=== PATIENT | male | born 1955 | race Two or more races ===

== ENCOUNTER 2025-01-10 23:54 | Inpatient (IN) | payer MEDICARE, OTHER ==
[~2025-01-10] VITALS: Ht 165.1 cm; Wt 76.3 kg
[2025-01-11] VITALS (29 sets, daily range): BP systolic 124–167; BP diastolic 58–101; TEMP 97.6–98.2; O2SAT 90–100
[2025-01-11] MEDS: IPRATROPIUM NEB FS 0.5 MG/2.5 ML AMPUL.NEB NEB ONE (00:29)
[2025-01-11] MEDS: ALBUTEROL FS 2.5 MG/3 ML VIAL.NEB NEB ONE (00:29)
[2025-01-11 00:31] LABS: PLATELET COUNT (AUTO) 608 K/uL (150-450); RED BLOOD CELL COUNT(AUTO) 4.47 MIL/uL (4.5-6.0); RED CELL DISTRIBUTION WIDTH 15.1 % (11.5-15.0)
[2025-01-11 00:33] LABS: WHITE BLOOD COUNT (AUTO) 32.8 K/uL (4.3-11.0)
[2025-01-11 00:49] LABS: ASPARTATE AMINOTRANSFERASE 71 U/L (15-37); CALCIUM, SERUM 8.8 mg/dL (8.5-10.1); CREATININE 1.2 mg/dL (0.6-1.3); NT-PRO BNP 2722 pg/mL (0-125); SODIUM SERUM 130 mmol/L (136-145); TOTAL PROTEIN, SERUM 6.6 g/dL (6.4-8.2); UREA NITROGEN, BLOOD 18 mg/dL (7-18)
[2025-01-11] MEDS ORDERED: ALBUTEROL FS 2.5 MG/3 ML VIAL.NEB ONE (00:52)
[2025-01-11] MEDS ORDERED: IPRATROPIUM NEB FS 0.5 MG/2.5 ML AMPUL.NEB ONE (00:52)
[2025-01-11 00:56] LABS: ALCOHOL, BLOOD < 3 mg/dL (0-10)
[2025-01-11 00:59] LABS: LYMPHOCYTES % (MANUAL) 6 % (16-48); MONOCYTES % (MANUAL) 9 % (0-11.0); NEUTROPHILS % (MANUAL) 85 (42-76); PLATELET ESTIMATE ADEQUATE
[2025-01-11] MEDS ORDERED: CEFTRIAXONE 1GM BAG (ER ONLY) 50 ML IV ONE (01:01)
[2025-01-11] MEDS ORDERED: AZITHROMYCIN 500 MG VIAL ONE (01:02)
[2025-01-11] MEDS: CEFTRIAXONE 1 G in IV D5W 50 ML IV ONE (01:10)
[2025-01-11] MEDS ORDERED: ENOXAPARIN SODIUM 80 MG/0.8 ML DISP.SYRIN SQ ONE (01:12)
[2025-01-11] MEDS: AZITHROMYCIN 500 MG in IV D5W 250 ML IV ONE (01:16)
[2025-01-11] MEDS: ENOXAPARIN SODIUM 80 MG/0.8 ML DISP.SYRIN SQ ONE (01:17)
[2025-01-11] MEDS ORDERED: MAGNESIUM HYDROXIDE 30 ML UDC PO PRN (01:30)
[2025-01-11] MEDS ORDERED: MAG HYDROX/AL HYDROX/SIMETH 30 ML UDC PO PRN (01:30)
[2025-01-11] MEDS ORDERED: ALBUTEROL FS 2.5 MG/0.5 ML VIAL.NEB NEB PRN ×2 (01:30→10:00)
[2025-01-11 01:31] LABS: LACTIC ACID 6.2 mmol/L (0.4-2.0)
[2025-01-11] MEDS: ONDANSETRON HCL/PF 4 MG/2 ML VIAL IVP PRN (01:47)
[2025-01-11] MEDS ORDERED: INSULIN REGULAR, HUMAN 100 UNIT/ML 3 ML VIAL SQ PRN ×2 (02:00→06:00)
[2025-01-11] MEDS ORDERED: DEXTROSE 50%-WATER 50 ML DISP.SYRIN IV PRN ×3 (02:00→06:30)
[2025-01-11] MEDS ORDERED: METF-442 PO (02:51)
[2025-01-11] MEDS ORDERED: DULO20CA PO (02:51)
[2025-01-11] MEDS ORDERED: ATOR40TA PO (02:51)
[2025-01-11 04:55] LABS: PLATELET COUNT (AUTO) 541 K/uL (150-450); RED BLOOD CELL COUNT(AUTO) 4.08 MIL/uL (4.5-6.0); RED CELL DISTRIBUTION WIDTH 15.2 % (11.5-15.0); WHITE BLOOD COUNT (AUTO) 25.4 K/uL (4.3-11.0)
[2025-01-11 05:03] LABS: CALCIUM, SERUM 8.8 mg/dL (8.5-10.1); CREATININE 1.1 mg/dL (0.6-1.3); PHOSPHORUS 3.9 mg/dL (2.5-4.9); SODIUM SERUM 135.0 mmol/L (136-145); UREA NITROGEN, BLOOD 20.0 mg/dL (7-18)
[2025-01-11 05:25] LABS: LACTIC ACID REFLEX 4.7 mmol/L (0.4-1.9)
[2025-01-11] MEDS ORDERED: *INSULIN REGULAR(HUMULIN R)HUM 100 UNIT/ML VIAL SQ PRN (06:00)
[2025-01-11] MEDS ORDERED: BLOOD SUGAR DIAGNOSTIC 1 EACH STRIP IN SCH (07:30)
[2025-01-11] MEDS ORDERED: BLOOD SUGAR DIAGNOSTIC 1 EACH STRIP VI SCH (07:30)
[2025-01-11] MEDS: BLOOD SUGAR DIAGNOSTIC 1 EACH STRIP IN SCH (08:13)
[2025-01-11] MEDS: ENOXAPARIN SODIUM 80 MG/0.8 ML DISP.SYRIN SQ SCH (08:18)
[2025-01-11] MEDS: PANTOPRAZOLE 40 MG VIAL IV SCH (08:46)
[2025-01-11] MEDS: INSULIN REGULAR, HUMAN 100 UNIT/ML 3 ML VIAL SQ PRN (08:48)
[2025-01-11 08:50] LABS: ABG BASE EXCESS -6.5 mmol/L (-2.0-3.0); ABG OXYGEN SATURATION 87.7 % (94.0-98.0); ABG PCO2 25.8 mmHg (35.0-48.0); ABG PH 7.422 (7.350-7.450); ABG PO2 56.0 mmHg (83.0-108.0); ABG TOTAL HEMOGLOBIN 12.2 G/dL (13.5-17.5); FLOW, BLOOD GAS 6.00 L/min (0.00-30.00); FRACTIONATED INSPIRED OXYGEN 45.0 %; SITE, ABG RIGHT RADIAL
[2025-01-11] MEDS: FUROSEMIDE 40 MG/4 ML VIAL IV SCH ×2 (10:39→20:41)
[2025-01-11] MEDS: ACETAMINOPHEN 325 MG TABLET PO PRN (14:41)
[2025-01-11] MEDS: ASPIRIN EC 325 MG TABLET.DR PO SCH (20:41)
[2025-01-11] MEDS: CEFTRIAXONE 1 G in IV D5W 50 ML IV SCH (21:00)
[2025-01-11] MEDS: AZITHROMYCIN 500 MG in IV D5W 250 ML IV SCH (21:45)
[2025-01-11] MEDS: NITROGLYCERIN 0.4 MG/TAB BOTTLE SL PRN (22:47)
[2025-01-11] MEDS: ATORVASTATIN 40 MG TABLET PO SCH (22:48)
[2025-01-12] VITALS (84 sets, daily range): BP systolic 80–197; BP diastolic 51–117; TEMP 97.8–99.8; O2SAT 93–100
[2025-01-12 01:42] LABS: ABG BASE EXCESS -3.9 mmol/L (-2.0-3.0); ABG OXYGEN SATURATION 99.4 % (94.0-98.0); ABG PCO2 26.9 mmHg (35.0-48.0); ABG PH 7.460 (7.350-7.450); ABG PO2 247.3 mmHg (83.0-108.0); ABG TOTAL HEMOGLOBIN 11.4 G/dL (13.5-17.5); FRACTIONATED INSPIRED OXYGEN 100.0 %; SET RATE, BG 20.0; SITE, ABG RIGHT RADIAL
[2025-01-12] MEDS ORDERED: NTG 50 MG/D5W250 ML BOTTL 250 ML IV ONE (01:58)
[2025-01-12] MEDS: NTG 50 MG/D5W250 ML BOTTL 250 ML IV PRN (02:00)
[2025-01-12 04:36] LABS: LDL 93 mg/dL (0-99)
[2025-01-12] MEDS: IPRATROPIUM NEB FS 0.5 MG/2.5 ML AMPUL.NEB NEB PRN (07:05)
[2025-01-12 08:56] LABS: PLATELET COUNT (AUTO) 584 K/uL (150-450); RED BLOOD CELL COUNT(AUTO) 3.78 MIL/uL (4.5-6.0); RED CELL DISTRIBUTION WIDTH 15.2 % (11.5-15.0)
[2025-01-12 09:00] LABS: CALCIUM, SERUM 8.8 mg/dL (8.5-10.1); CREATININE 1.2 mg/dL (0.6-1.3); SODIUM SERUM 131.0 mmol/L (136-145); UREA NITROGEN, BLOOD 37.0 mg/dL (7-18)
[2025-01-12 09:15] LABS: WHITE BLOOD COUNT (AUTO) 33.1 K/uL (4.3-11.0)
[2025-01-12 09:35] LABS: LYMPHOCYTES % (MANUAL) 2 % (16-48); MONOCYTES % (MANUAL) 5 % (0-11.0); NEUTROPHILS % (MANUAL) 93 (42-76); PLATELET ESTIMATE INCREASED
[2025-01-12] MEDS: INSULIN REGULAR, HUMAN 100 UNIT/ML 3 ML VIAL SQ PRN (13:32)
[2025-01-12] MEDS: METOPROLOL TARTRATE 25 MG TABLET PO SCH (15:38)
[2025-01-12 15:40] LABS: APPEARANCE,URINE CLEAR (CLEAR); BLOOD, URINE 2+ Ery/uL (NEGATIVE); LEUKOCYTE ESTERASE ,URINE NEGATIVE (NEGATIVE); NITRITE, URINE NEGATIVE (NEGATIVE); UGLUCOSE 3+ mg/dL (NEGATIVE)
[2025-01-12] MEDS: AMIODARONE 150 MG in IV D5W 100 ML IV ONE (15:46)
[2025-01-12 15:57] LABS: AMPHETAMINE, URINE NEGATIVE (NEGATIVE); BARBITURATE, URINE NEGATIVE (NEGATIVE); BENZODIAZEPINE, URINE NEGATIVE (NEGATIVE); COCCAINE, URINE NEGATIVE (NEGATIVE); OPIATE, URINE NEGATIVE (NEGATIVE)
[2025-01-12 15:58] LABS: CANNABINOID, URINE POSITIVE (NEGATIVE)
[2025-01-12 15:59] LABS: ADD URINE CULTURE NO; SQUAMOUS EPITHELIAL CELL,UR None Seen /HPF (None Seen)
[2025-01-12] MEDS: AMIODARONE 450 MG in IV D5W 241 ML IV PRN (16:03)
[2025-01-12 16:24] LABS: CREATININE, URINE 37.4 MG/DL (30.0-125.0); URINE SODIUM, RANDOM 21.0 mmol/l (40-220); URINE TOTAL PROTEIN 14.6 mg/dL (0-11.9)
[2025-01-12 19:24] LABS: EOSINOPHIL,URINE None Seen
[2025-01-12] MEDS: *INSULIN REGULAR(HUMULIN R)HUM 100 UNIT/ML VIAL SQ PRN (21:26)
[2025-01-13] VITALS (16 sets, daily range): BP systolic 112–142; BP diastolic 59–108; TEMP 98.4–99; O2SAT 95–100
[2025-01-13 04:47] LABS: PLATELET COUNT (AUTO) 479 K/uL (150-450); RED BLOOD CELL COUNT(AUTO) 3.42 MIL/uL (4.5-6.0); RED CELL DISTRIBUTION WIDTH 15.2 % (11.5-15.0); WHITE BLOOD COUNT (AUTO) 29.9 K/uL (4.3-11.0)
[2025-01-13 05:22] LABS: SODIUM SERUM 132 mmol/L (136-145)
[2025-01-13 05:23] LABS: ASPARTATE AMINOTRANSFERASE 179 U/L (15-37); CALCIUM, SERUM 8.3 mg/dL (8.5-10.1); CREATININE 0.9 mg/dL (0.6-1.3); PHOSPHORUS 3.4 mg/dL (2.5-4.9); UREA NITROGEN, BLOOD 40 mg/dL (7-18)
[2025-01-13 05:24] LABS: TOTAL PROTEIN, SERUM 5.9 g/dL (6.4-8.2)
[2025-01-13 05:25] LABS: CREATINE KINASE, TOTAL 864 U/L (39-308)
[2025-01-13] MEDS ORDERED: Magnesium 1 GM/2 ML VIAL IV STA (05:56)
[2025-01-13] MEDS ORDERED: NOREPINEPHRINE 8 MG in IV D5W 242 ML IV PRN (06:00)
[2025-01-13] MEDS ORDERED: SODIUM BICARBONATE SYR 50 MEQ/50 ML DISP.SYRIN IV ONE (06:17)
[2025-01-13] MEDS ORDERED: PANTOPRAZOLE 40 MG TABLET.DR PO SCH (09:00)
[2025-01-14 08:07] LABS: PTH, INTACT 42 pg/mL (15-65)
== END 2025-01-13 06:18 | DRG 871 ==
LOC: ER 23:58 → ICU 01-11 02:45 → TELE-TD 01-11 07:45 → ICU 01-11 09:25
PROVIDERS: ADMIT Student in an Organized Health Care Education/Training Program
PROC: 5A09357 Assistance with Respiratory Ventilation, Less than 24 Consecutive Hours, Continuous Positive Airway Pressure (ICD-10-PCS; principal; 2025-01-12)
PROC: 02HV33Z Insertion of Infusion Device into Superior Vena Cava, Percutaneous Approach (ICD-10-PCS; 2025-01-12)
PROC: B548ZZA Ultrasonography of Superior Vena Cava, Guidance (ICD-10-PCS; 2025-01-12)
PROC: 5A2204Z Restoration of Cardiac Rhythm, Single (ICD-10-PCS; 2025-01-13)
PROC: 0BH17EZ Insertion of Endotracheal Airway into Trachea, Via Natural or Artificial Opening (ICD-10-PCS; 2025-01-13)
DX: A41.9 Sepsis, unspecified organism (principal); I21.4 Non-ST elevation (NSTEMI) myocardial infarction; J96.01 Acute respiratory failure with hypoxia; J81.0 Acute pulmonary edema; J44.0 Chronic obstructive pulmonary disease with (acute) lower respiratory infection; E44.1 Mild protein-calorie malnutrition; N17.9 Acute kidney failure, unspecified; I13.0 Hypertensive heart and chronic kidney disease with heart failure and stage 1 through stage 4 chronic kidney disease, or unspecified chronic kidney disease; E87.1 Hypo-osmolality and hyponatremia; G93.40 Encephalopathy, unspecified; E11.9 Type 2 diabetes mellitus without complications; I46.9 Cardiac arrest, cause unspecified; E78.5 Hyperlipidemia, unspecified; N18.9 Chronic kidney disease, unspecified; Z79.84 Long term (current) use of oral hypoglycemic drugs; Z79.899 Other long term (current) drug therapy; F39 Unspecified mood [affective] disorder; Z86.73 Personal history of transient ischemic attack (TIA), and cerebral infarction without residual deficits; E86.0 Dehydration; E11.22 Type 2 diabetes mellitus with diabetic chronic kidney disease; F17.200 Nicotine dependence, unspecified, uncomplicated; D64.9 Anemia, unspecified; D75.839 Thrombocytosis, unspecified; G89.29 Other chronic pain; F12.90 Cannabis use, unspecified, uncomplicated; R23.3 Spontaneous ecchymoses; L98.9 Disorder of the skin and subcutaneous tissue, unspecified; L89.151 Pressure ulcer of sacral region, stage 1; F43.10 Post-traumatic stress disorder, unspecified; I16.0 Hypertensive urgency; I48.91 Unspecified atrial fibrillation; I50.9 Heart failure, unspecified
CPT/HCPCS: 36415; 36569; 36600; 71045-TC; 76770-TC; 80048-TC; 80053-TC; 80061-TC; 81001; 82248-TC; 82550-TC; 82553; 82570-TC; 82803-TC; 82962-TC; 83605-TC; 83735-TC; 83880; 83970; 84100-TC; 84155; 84165; 84300-TC; 84439-TC; 84443-TC; 84484-TC; 85025-TC; 85027-TC; 87040-TC; 87081-TC; 93307-TC; 94799-TC; A4223; G0378; G0480; J0169; J0282; J0330; J0456; J0696; J1650; J1815; J1938; J2405; J2470; J2919; J3475; J3490; J7030; J7050; J7060